=== PATIENT | female | born 1970 | race African-American/Black ===

== ENCOUNTER 2019-03-23 08:10 | Day surgery (SDC) | payer MEDICAID ==
[~2019-03-23] VITALS: Ht 167.6 cm; Wt 84.8 kg
[~2019-03-23 08:10] MED LIST: AUGMENTIN 875-11 TAB PO; CARAFATE1 G PO; COZAAR50 MG PO; DEPO-ESTRADIOL INJ; DIFLUCAN200 MG PO; ESTRACE1 MG PO; LISINOPRIL10 MG PO; LORTAB PO; PRILOSEC20 MG PO; ZOFRAN ODT4 MG/UDTAB PO; ZYRTEC10 MG PO
[2019-03-23] MEDS ORDERED: DICLOFENAC SODI50 MG PO (09:34)
[2019-03-23] MEDS ORDERED: DEXILANT60 MG PO (09:35)
[2019-03-23] MEDS ORDERED: TOPAMAX50 MG PO (09:35)
[2019-03-23] MEDS ORDERED: KLONOPIN0.5 MG PO (09:36)
[2019-03-23] MEDS ORDERED: ZYRTEC10 MG PO (09:36)
[2019-03-23] MEDS ORDERED: FLUTICASONE PRO16 GM NASAL (09:36)
[2019-03-23] MEDS ORDERED: ESTRADIOL INJ (09:38)
[2019-03-23 09:55] VITALS: BP 102/65; Ht 167.6 cm; Wt 84.8 kg
[2019-03-23] MEDS ORDERED: HYDROCODON-ACE1 EA10 PO (13:12)
--- NOTE | 2019-03-30 07:51 | OP ---
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 POSTOPERATIVE DIAGNOSIS: Painful acromioclavicular arthritis with impingement syndrome. PROCEDURES: 1. Arthroscopic distal clavicle excision done through separate incision -- 1 cm. 2. Arthroscopic subacromial decompression, acromioplasty, and bursectomy. SURGEON: Whit Moses MD ANESTHESIA: General. INTRAOPERATIVE COMPLICATIONS: None. SUMMARY OF PATHOLOGIC FINDINGS: The patient was indeed found to have substantial excoriation of the coracoacromial ligament, some rotator cuff attritional changes were noted, but no full thickness rotator cuff tear were noted. The patient had substantial acromioclavicular pannus with grade IV chondromalacia. OPERATIVE SUMMARY IN DETAIL: After obtaining appropriate preoperative orthopedic surgery consent as well as anesthetic consultation, evaluation and clearance, the patient was brought to the operating room and placed on the operating table in supine position. After general laryngeal mask airway was administered, the patient was placed in left lateral decubitus position. All pressure points were well padded. She was held firmly to the operating table using the vacuum pack suction system. Right upper extremity and shoulder were then prepped and draped in routine sterile fashion. The arm was held in the Arthrex traction boom at 30 degrees of forward flexion, 30 degrees of abduction, 10 pounds of traction laterally. Arthroscopy was established in the glenohumeral joint from the posterior portal. Anterior portal was established in the anterior safe interval. Diagnostic arthroscopy showed the patient to have relatively clean shoulder without substantial arthritis. Attention was then turned to the subacromial space. Accessory lateral portal was created through which the [place] tissue ablation system was utilized to denude the undersurface of the acromion of all soft tissue elements and release the coracoacromial ligament. A 5-0 barrel bur was used for acromioplasty at the level of acromioclavicular joint and then attention was turned to the distal clavicle. Through a separate arthroscopic portal under direct arthroscopic visualization, the distal clavicle was excised for 1 cm. Lastly, the residual subacromial bursa was taken down both superiorly, anteriorly, laterally, and posteriorly. Having completed this, arthroscopy portals were closed in routine interrupted fashion using 4-0 Prolene. Sterile dressings were applied. The patient was awakened and taken to recovery room in stable condition. All final needle and sponge counts were correct. TRANSINT:[id number] Voice Confirmation ID: [id number] DOCUMENT ID: [id number] OPERATIVE REPORT [id number] MARY GARDNER MD, WHIT KITCHEN at 0751 CC: [id number] DICTATION DATE: 03/27/19 1256 BOOK MENDER: 03/27/19 1629 [facility] 03/23/19 [facility] [address] [place] [address]
== END 2019-03-23 15:25 | disposition home or self-care (01) ==
LOC: D.OPS 08:10 → D.PAN 11:45 → D.OPS 11:45
PROVIDERS: ATTEND Orthopaedic Surgery
DX: M75.41 Impingement syndrome of right shoulder (principal); M19.011 Primary osteoarthritis, right shoulder; Z01.812 Encounter for preprocedural laboratory examination

== ENCOUNTER 2019-06-11 05:42 | Day surgery (SDC) | payer MEDICAID ==
[~2019-06-11] VITALS: Ht 170.2 cm; Wt 91.2 kg
[~2019-06-11 05:42] MED LIST changes: +BUPROPION HCL100 M1 PO; +DEPO ESTRADIOL; +DEXILANT60 MG PO; +DICLOFENAC SODI50 MG PO; +ESTRADIOL INJ; +FLUTICASONE PRO16 GM NASAL; +HYDROCODON-ACE1 EA10 PO; +KLONOPIN0.5 MG PO; +TOPAMAX50 MG PO
[2019-06-11 05:58] LABS: HEMATOCRIT 36.2 % (36.0-48.0); HEMOGLOBIN 11.9 g/dL (12-16); MCH 28.2 pg (26.0-34.0); MCHC 32.9 g/dL (31.0-37.0); MCV 85.8 fL (80.0-100.0); MEAN PLATELET VOLUME 9.7 fL (7.4-10.4); RBC 4.22 10x6/uL (4.00-5.40); RDW 14.3 % (11.5-14.5); WBC 4.3 10x3/uL (4.8-10.8)
[2019-06-11] MEDS ORDERED: DEXILANT30 MG PO (06:33)
[2019-06-11] MEDS ORDERED: BENADRYL25 MG PO (06:35)
[2019-06-11 06:50] VITALS: BP 106/65; Ht 170.2 cm; Wt 91.2 kg
[2019-06-11] MEDS ORDERED: HYDROCODON-ACE1 EA10 PO (08:31)
--- NOTE | 2019-06-11 08:49 | NUR ---
OPA IN AIRWAY ON ADMIT TO RR
--- NOTE | 2019-06-11 09:41 | OP ---
PATIENT NAME: MARY GARDNER MEDICAL RECORD: [id number] :70 LOCATION:[facility] ADMISSION DATE: SURGEON: WHIT MOSES MD DATE OF OPERATION: 06/11/2019 PREOPERATIVE DIAGNOSIS: Carpal tunnel syndrome of the right wrist. POSTOPERATIVE DIAGNOSIS: Carpal tunnel syndrome of the right wrist. PROCEDURE: Carpal tunnel release. SURGEON: Whit Moses MD ANESTHESIA: General. INTRAOPERATIVE COMPLICATIONS: None. SUMMARY OF PATHOLOGIC FINDINGS: A very tight transverse carpal ligament consistent with preoperative diagnosis. OPERATIVE SUMMARY IN DETAIL: After obtaining the appropriate preoperative orthopedic surgery consent as well as anesthetic consultation, evaluation, and clearance, the patient was brought to the operating room and placed on the operating table in supine position. After adequate general laryngeal mask airway was administered, tourniquet was placed on the proximal aspect of the right upper extremity. Right upper extremity was then prepped and draped in routine sterile fashion. At this point, appropriate timeout was taken including the appropriate identifiers, medications, agreed upon by all in the operative suite. The arm was elevated and exsanguinated, tourniquet was inflated to 250 mmHg. An incision was made in line with the fourth metacarpal ray in the mid palmar crease. This incision was taken down the distal aspect. The transverse carpal ligament was identified. This was slightly incised to identify the median nerve. At this point, [place] was then put into place over the median nerve and protect it. Complete transverse carpal ligament was incised using the Dani light knife under direct visualization. Having completed this, the wound was irrigated and closed in the usual fashion. The area was locally anesthetized with 0.25% Marcaine with epinephrine. Sterile dressings were applied. Tourniquet was deflated. The patient was awakened and taken to the recovery room in stable condition. All final needle and sponge counts were correct. TRANSINT:[id number] Voice Confirmation ID: [id number] DOCUMENT ID: [id number] JOSUÉ CABRAL, WHIT KITCHEN at 0941 CC: [id number] DICTATION DATE: 06/11/19 0839 TELEMARKETING AGENT: 06/11/19 [address] [place] [id number]
--- NOTE | 2019-06-11 10:07 | NUR ---
DISCHARGED HOME VIA WHEELCHAIR TO PRIVATE VEHICLE WITH SIGNIFICANT OTHER
== END 2019-06-11 10:07 | disposition home or self-care (01) ==
LOC: D.OPS 05:42 → D.PAN 08:15 → D.OPS 08:30 → D.PAN 11:35 → D.OPS 12:45
PROVIDERS: Anesthesiology; ATTEND Orthopaedic Surgery
DX: G56.01 Carpal tunnel syndrome, right upper limb (principal); Z01.812 Encounter for preprocedural laboratory examination